=== PATIENT | male | born 1945 | race Caucasian/White ===

== ENCOUNTER → 2017-09-24 17:26 | Outpatient (CLI) | payer MEDICARE, SELFPAY ==
--- NOTE | 2017-09-24 17:30 | CT_ITS ---
STUDY: CT BRAIN WITHOUT CONTRAST REASON FOR EXAM: Male, 72 years old. Memory impairment RADIATION DOSAGE (If Supplied By Facility): CTDIvol = ( 60.81 ) mGy, DLP = ( 1089.89 ) mGycm TECHNIQUE: Transaxial CT imaging of the brain was performed without administration of intravenous contrast material. Individualized dose optimization techniques were used for this CT. COMPARISON: None. FINDINGS: Normal soft tissue structures. Normal calvarium. Mild atrophy and periventricular white matter ischemic changes.. Normal basal ganglia and thalami. Normal brainstem. Normal cerebellum. There is no intracranial hemorrhage. There are no findings of an acute ischemic infarction. Small mucous retention cyst in right maxillary sinus. CT/Brain/Head without Contrast IMPRESSION: Mild atrophy and periventricular white matter ischemic changes. No evidence for acute bleed. If concern for acute infarct MRI recommended Electronically Signed: Jermaine Yadav MD at 17:44 EDT , Service support ,
== END ==
PROVIDERS: Family Provider Internal Medicine; PCP Internal Medicine; Visit Provider Internal Medicine
DX: R41.3 Other amnesia (principal)
CPT/HCPCS: 70450

== ENCOUNTER → 2017-12-31 16:23 | Outpatient (CLI) | payer MEDICARE, SELFPAY ==
--- NOTE | 2017-12-31 16:45 | MRI_ITS ---
STUDY: MRI BRAIN WITHOUT CONTRAST REASON FOR EXAM: Male, 72 years old. Impaired gait TECHNIQUE: Standardized multiplanar fat and water weighted pulse sequences were obtained. COMPARISON: CT 09/24/2017 FINDINGS: Normal size of the ventricles and extra-axial spaces for the patient's age. Moderate microangiopathic white matter disease. Normal bilateral basal ganglia. Normal thalami. There is no extra-axial fluid accumulation. Normal flow voids within the major intracranial circulation suggesting patency by spin echo criteria. Normal sella turcica, pituitary gland, infundibular stalk, optic chiasm and hypothalamus. Normal tectal plate and pineal gland. Normal midbrain, laurent and medulla. Normal cerebellum. Normal basal cisterns. Normal bilateral temporal bones. Normal bilateral internal auditory canals. No demonstrated orbital abnormality, within the constraints of a routine brain study. Normal visualized paranasal sinuses. Normal calvarium and skull base. Normal visualized soft tissue structures. Normal visualized upper cervical spine. MRI/Brain without Contrast IMPRESSION: Moderate microangiopathic white matter disease. No evidence of infarct, hemorrhage, or mass effect. Electronically Signed: Hayder Dodd MD at 23:36 EDT Tel , Service support ,
== END ==
PROVIDERS: Family Provider Internal Medicine; PCP Internal Medicine; Visit Provider Internal Medicine
DX: R26.89 Other abnormalities of gait and mobility (principal)
CPT/HCPCS: 70551

== ENCOUNTER 2018-02-13 12:30 | Outpatient (RCR) | payer MEDICARE, SELFPAY ==
--- NOTE | 2018-01-10 08:31 | HP.PTEVAL_ITS ---
Patient's Visit Information LAUREN ESPINOZA is a 72 year old M referred to Physical Therapy by Ilda Olmos with a diagnosis of poor balance, abnormal gait.. Date of Evaluation: 01/10/18 Physical Therapist: Gonzales Yin DPT, OC - Visit Plan Frequency: 2x /Week Duration: 4-6 Weeks Plan: Neurocom balance assessment then 2x/week for vestibular balance, posture,HS and gastroc and hip stretches, coordination and progression of general strength and functional exerciese(likely to massilon Y, pt to decide.) - Subjective Subjective: Thought he had Parkinsons but MRI said otherwise adn was normal. Balance and stamina have been worseing for long time. Moving [place]e for new house and got tired quickly. Needed to hold on with one arm on steps while carrying. This has been over the last year and a half. Memory is also effected. retired 3 years ago adn sat in chair for long time 8 hours per day. No current exercises, does a little yoga a yee 1-2x/week on dvd. Sleep is OK, wakes up a lot with anxiety and to go to bathroom. No neurologist needed. Activities are a little more active now that he is moving. Pushes walking mower 30 minutes and feels exhausted. Basic ADLs are OK, hard to get socks and shoes on as legs do not do what he wants them to do.]. No pain, no numbness, no spinning. No AD needed, no falls. - Objective LE AROM WFL adn strength 4+/5. HS and gastroc show moderate tightness. Walks safe and I, transfers out of chair without UE in multiple attempts I. Steps are reciprocal with one rail to descend safely and doesn't put full foot on each step ascending. avoids forward weight shift with turns and out of chair. VOR walking is not bad. Transfer off floor needing UE on support I. sensation LE WNl to gross light. reflexes 3/3 patella and achilles. coordination to reciprocal toe tap is min dificits. Posture is hunched over btu can correct with VC quickly. - Balance Scores Functional Gait Assessment Score: 26 % Disability: 13.3400 CATSIB Score (Max score 120 seconds): 91 - Goals Goal 1:: Out of chair without UE one attempt Goal Time Frame: 4-6 Weeks Goal 2:: FGA to minimize fall risk. Goal Time Frame: 4-6 Weeks Goal 3:: I approp HEP to minimize future problems. Goal Time Frame: 4-6 Weeks Goal 4:: Pt feel 50% better mobility and stand tall without VC Goal Time Frame: 4-6 Weeks - Rehabilitation Potential Physical Therapy Diagnosis: Movement deficits causing mobility concerns. Rehabilitation Potential: Fair - Anticipated Interventions Patient/Client Instruction: Educate patient on: Condition, Plan of Care For the Purpose of:: To increase tolerance to activity/condition/position, To improve safety with gait Therapeutic Exercise to Include: Strength training, Balance training, Agility training, Flexibilty training For the Purpose of:: To increase tolerance to activity/condition/position, To improve ability of physical actions for home/community/work/leisure, To improve balance Thank you for the opportunity to evaluate your patient. For Medicare and Medicare HMO plans, please review the plan of care and approve it. It will need to be FAXED BACK to us at [phone] for Medicare purposes. Please let me know if there are questions or concerns regarding this plan of care. Physician Signatur e: Date:
--- NOTE | 2018-02-13 12:58 | HP.PTDCSUM ---
HP - PT D/C Summary It has been my pleasure to treat LAUREN ESPINOZA under orders from Ilda Olmos, for the diagnosis of poor balance, abnormal gait. for a total of 10 visit(s). Discharge Date: 02/13/18 Please see the following information for a summary of their discharge status. - Subjective Subjective: Did workout yesterday and needs update on rows and knee extension. it was OK. Getting better overall, balance is better. No falls or stumbles lately. No AD needed. Commitment to doing something everyday is there. Getting foot inside car is getting easier. - Overall Improvement % Improvement: 50 - Objective Objective/Function: FGA is +2. trasnfers are easy and no UE needed from chair. Pt is happy with workout and compliant [facility] - Goals Goal 1:: Out of chair without UE one attempt Goal 2:: FGA to minimize fall risk. Goal Progress: Goal Met Goal 3:: I approp HEP to minimize future problems. Goal Progress: Goal Met Goal 4:: Pt feel 50% better mobility and stand tall without VC Goal Progress: Goal Met - Plan Plan: D/c to gym and home ex. - D/C Information Discharge Comments: Doing well and will [facility]. If there are questions or concerns regarding this patient's physical therapy, please feel free to call me at [phone]. Thank you for the referral of this patient. Sincerely, Gonzales Yin, DPT, OC
== END 2018-02-13 19:00 | disposition home or self-care (01) ==
LOC: PT 12:30
PROVIDERS: Family Provider Internal Medicine; PCP Internal Medicine; Referring Provider Internal Medicine; Visit Provider Internal Medicine
DX: R26.89 Other abnormalities of gait and mobility (principal)
CPT/HCPCS: 97110; 97162; 97530; 97750

== ENCOUNTER → 2018-10-06 | Outpatient (CLI) | payer MEDICARE, SELFPAY ==
[2018-10-06 10:45] LABS: Erythrocyte Sedimentation Rate 8 mm/hr (0-20)
[2018-10-06 11:47] LABS: Thyroid Stim Hormone (TSH) 0.88 uIU/mL (0.358-3.74)
[2018-10-06 11:52] LABS: HIV - WCH Non-Reactive (Nonreactive); Vitamin B12 679 pg/mL (211-911)
[2018-10-13 20:06] LABS: PROEL- A/G Ratio 1.3 (0.7-1.7); PROEL- Alpha-1 Globulin 0.2 g/dL (0.0-0.4); PROEL- Alpha-2 Globulin 0.8 g/dL (0.4-1.0); PROEL- Beta Globulin 1.2 g/dL (0.7-1.3); PROEL- Gamma Globulin 0.9 g/dL (0.4-1.8); PROEL- Globulin, Total 3.1 g/dL (2.2-3.9); PROEL- TOTAL PROTEIN 7.1 g/dL (6.0-8.5)
[2018-10-14 16:24] LABS: Arsenic 7245 5 ug/L (2-23); HCV Quant. RNA PCR <15 IU/mL (.); Lead, Blood Adult 16+yrs 1 ug/dL (0-4)
== END | disposition home or self-care (01) ==
PROVIDERS: Family Provider Internal Medicine; PCP Internal Medicine; Referring Provider Psychiatry & Neurology Neurology; Visit Provider Psychiatry & Neurology Neurology
DX: G62.9 Polyneuropathy, unspecified (principal); R25.1 Tremor, unspecified; R27.0 Ataxia, unspecified; R53.1 Weakness; F03.90 Unspecified dementia, unspecified severity, without behavioral disturbance, psychotic disturbance, mood disturbance, and anxiety; R53.83 Other fatigue
CPT/HCPCS: 36415; 82607; 82746; 83018; 83655; 83825; 84165; 84443; 85652; 86703; 87522

== ENCOUNTER → 2019-03-20 15:46 | Outpatient (CLI) | payer MEDICARE, SELFPAY ==
[2019-03-20 17:34] LABS: Absolute Lymphocyte Count 1.47 X10^3/uL (0.83-4.51); Absolute Neutrophil Count 5.6 X10^3/uL (2.0-7.7); Basophil# 0.07 X10^3/uL; Basophil% 0.8 % (0-1); Eosinophils% 2.4 % (0-5); Hematocrit 43.4 % (40-54); Hemoglobin 14.4 g/dL (13.0-16.5); Lymphocyte # 1.47 X10^3/ul (4.0); Lymphocyte % 17.7 % (19-41); Mean Corp Hgb Conc 33.2 g/dL (32-36); Mean Corpuscular Hgb 31.9 pg (27.0-32.0); Mean Platelet Vol. 10.2 fl (6.2-12.0); Monocyte# 0.94 X10^3/uL; Monocyte% 11.3 % (0-10); NRBC Flagged by Analyzer 0 % (0-5); Neutrophil # 5.58 X10^3/uL (2.7-7.7); Neutrophil % 67.4 % (47-70); Platelet Count 219 K/mm3 (150-450); RBC Distribution Width CV 13.3 % (11.6-14.6); RBC Distribution Width SD 47.8 fl (35.1-43.9); Red Blood Count 4.52 M/mm3 (4.6-6.2); White Blood Count 8.3 K/mm3 (4.4-11.0)
[2019-03-20 17:42] LABS: Erythrocyte Sedimentation Rate 9 mm/hr (0-20)
[2019-03-20 17:43] LABS: Uric Acid 6.3 mg/dL (3.5-7.2)
== END ==
PROVIDERS: Family Provider Internal Medicine; PCP Internal Medicine; Referring Provider Internal Medicine; Visit Provider Internal Medicine
DX: M10.9 Gout, unspecified (principal); M79.674 Pain in right toe(s)
CPT/HCPCS: 36415; 84550; 85025; 85652

== ENCOUNTER 2019-11-19 13:06 | Emergency (ER) | payer MEDICARE, SELFPAY ==
[2019-11-19 13:08] VITALS: BP 147/92; PULSE 74; RESP 16; TEMP 36.2; O2SAT 98; BMI 24.7
--- NOTE | 2019-11-19 13:23 | CT_ITS ---
STUDY: CT ABDOMEN AND PELVIS WITHOUT CONTRAST REASON FOR EXAM: Male, 74 years old. NAUSEA X 5 DAYS RADIATION DOSAGE (If Supplied By Facility): CTDIvol = ( 14.30 ) mGy, DLP = ( 644.99 ) mGycm TECHNIQUE: Transaxial images were obtained from the dome of the diaphragm to the symphysis pubis without oral contrast, and without intravenous contrast. Sagittal and coronal images were reconstructed. Individualized dose optimization techniques were used for this CT. COMPARISON: None. FINDINGS: The visualized lung bases are unremarkable. The visualized portions of the heart are within normal limits. Normal liver. Normal gallbladder and extrahepatic biliary system. Normal spleen. Normal pancreas. Normal bilateral adrenal glands. No obstructive uropathy, there are bilateral multiple simple right renal cysts. There is a small hiatal hernia. Normal small intestine. Retained stool noted throughout the colon. There is retained oral contrast from a previous study still within the colon suggesting motility disorder There is non-visualization of the appendix. Normal abdominal aorta. Normal inferior vena cava. Normal retroperitoneum. Normal urinary bladder. Prostate is mildly enlarged, there is a right hydrocele There is a left-sided inguinal hernia containing adipose tissue. There are diffuse degenerative changes of the visualized lumbar spine. CT/Abdomen/Pelvis W IV Cont ONLY IMPRESSION: No suspicious solid organ abnormality, simple right renal cysts need no specific follow-up Retained stool throughout the colon and retained oral contrast is noted from a previous study suggesting motility disorder Mildly enlarged prostate Fat-containing left inguinal hernia Degenerative bony changes Electronically Signed: Colby Horne MD at 14:45 EDT , Service support ,
--- NOTE | 2019-11-19 13:47 | ED.VIS.GEN ---
History of Present Illness Chief Complaint: Abd Pain Informant: Patient, Family Onset: Days Timing: Continuous Current Severity: Moderate Maximum Severity: Moderate Narrative: The patient is a 74-year-old male with history of Parkinson's that presents to the emergency department with midepigastric pain, nausea, and vomiting. The patient states his symptoms began on Saturday. He states that he began to have a sharp, stabbing pain in his central abdomen. He has had multiple episodes of dry heaving. He states he has not moved his bowels, which is not atypical for him. He denies any fevers or chills. He states he just feels generally weak. The patient has no history of prior abdominal surgery. He denies any sick contacts. Prior similar symptoms: No Recent Illness/Hospitalization: No Past Medical History - Allergies and Home Meds Allergies/Adverse Reactions: Allergies No Known Allergies Allergy (Verified 11/19/19 13:11) Primary Care Physician: Ilda Olmos DO [Primary Care Provider] - Prior records reviewed: Yes Past Medical History: - - Parkinson's with minimal dementia Surgical History: noncontributory Review of Systems General: Denies: Chills, Fever, Sweats Eyes: Denies: Visual changes - bilaterally, Diplopia ENT: Denies: Rhinorrhea, Sore throat Cardiovascular: Denies: Chest pain, Palpitations Respiratory: Denies: Dyspnea, Cough, Dyspnea on exertion, Paroxysmal nocturnal dyspnea Gastrointestinal: Reports: Abdominal pain, Nausea, Vomiting. Denies: Diarrhea, Melena, Hematochezia Genitourinary: Denies: Dysuria, Hematuria, Frequency Musculoskeletal: Denies: Back pain, Extremity Pain Skin: Denies: Rash, Wounds Neurological: Denies: Headache, Weakness, Numbness Physical Exam Vital Signs/Narrative: Vital Signs Temp Pulse Resp BP Pulse Ox 11/19/19 13:08 97.2 F L 74 16 147/92 H 98 Inital Vital Signs reviewed: Yes General: Well nourished, Well developed, No Acute Distress Head: Normocephalic, Atraumatic Eyes: Perrl, EOMI ENT: Moist mucous membranes, No rhinorrhea Neck: Supple, Nontender Cardiovascular: Regular rate, Regular rhythm, No murmurs Respiratory: No distress, CTA bilaterally, Chest nontender Abdomen: Soft, Nondistended, Normal bowel sounds, Tender. Negative for: Nontender, Guarding, Rebound tenderness Back: Nontender, Normal Inspection Extremities: Nontender, No edema Skin: Normal color, No rash Neurological: Alert, Oriented x3, Cranial nerves II-XII grossly intact, Normal Strength, Normal Sensation Psychological: Normal affect, Normal Mood Diagnostic/Tx/Re-eval Clinical Impression(s) from Imaging Studies Abdomen/Pelvis CT 11/19/19 13:23 IMPRESSION: No suspicious solid organ abnormality, simple right renal cysts need no specific follow-up Retained stool throughout the colon and retained oral contrast is noted from a previous study suggesting motility disorder Mildly enlarged prostate Fat-containing left inguinal hernia Degenerative bony changes Electronically Signed: Colby Horne MD at 14:45 EDT , Service support , Abnormal Lab Results 11/19/19 11/19/19 13:40 13:40 WBC 9.7 RBC 4.67 Hgb 15.1 Hct 41.2 MCV 88.2 MCH 32.3 H MCHC 36.7 H RDW Std Deviation 37.9 RDW Coeff of Fiorella 11.9 Plt Count 247 MPV 9.8 Immature Gran % (Auto) 0.400 Neut % (Auto) 84.4 H Lymph % (Auto) 6.4 L [place] % (Auto) 8.6 Eos % (Auto) 0.1 Baso % (Auto) 0.1 Absolute Neuts (auto) 8.2 H Absolute Lymphs (auto) 0.62 L Nucleated RBC % 0 Sodium 123 L Potassium 3.7 Chloride 83 L Carbon Dioxide 30.0 Anion Gap 10 BUN 15 Creatinine 1.12 Estim Creat Clear Calc 57.86 Est GFR (MDRD) Af Amer 82 Est GFR (MDRD) Non-Af 68 BUN/Creatinine Ratio 13.4 Glucose 129 H Calcium 10.0 Total Bilirubin 0.90 AST 16 ALT 38 Alkaline Phosphatase 55 Total Protein 8.4 H Albumin 4.6 Globulin 3.8 Albumin/Globulin Ratio 1.2 Lipase 56 L - Medical Decision Making Patient presents with nausea, vomiting, and midepigastric pain. His abdomen is soft and nontender. He is not had fever. I really cannot re-create any tenderness on exam. Metabolic work-up was pursued. The patient is mildly hyponatremic, but I do not feel this is contributing to his symptoms. He was given IV fluids. Patient underwent CT of the abdomen pelvis. There is no evidence of acute intra-abdominal process. After Zofran, he was reevaluated. The patient is resting comfortably with no complaints. He was able to tolerate an oral challenge. At this point, I do feel that he is safe for outpatient follow-up. I am going to prescribe him antiemetics and have him follow-up for repeat BMP in a week. He and are comfortable with this plan of care. Impression 1. Nausea vomiting 2. Hyponatremia ED Disposition - Plan for ED Patient: Instructions: ED Nausea Vomiting Adult Prescriptions: Ondansetron [Zofran Odt] 4 mg PO Q8H PRN PRN #10 tab PRN Reason: Nausea Prescription Printed Referrals: Ilda Olmos DO [Primary Care Provider] -
[2019-11-19 13:52] LABS: Absolute Lymphocyte Count 0.62 X10^3/uL (0.83-4.51); Absolute Neutrophil Count 8.2 X10^3/uL (2.0-7.7); Basophil# 0.01 X10^3/uL; Basophil% 0.1 % (0-1); Eosinophil# 0.01 X10^3/uL; Eosinophils% 0.1 % (0-5); Hematocrit 41.2 % (40-54); Hemoglobin 15.1 g/dL (13.0-16.5); Lymphocyte # 0.62 X10^3/ul (4.0); Lymphocyte % 6.4 % (19-41); Mean Corp Hgb Conc 36.7 g/dL (32-36); Mean Corpuscular Hgb 32.3 pg (27.0-32.0); Mean Corpuscular Volume 88.2 fL (80-94); Mean Platelet Vol. 9.8 fl (6.2-12.0); Monocyte# 0.84 X10^3/uL; Monocyte% 8.6 % (0-10); NRBC Flagged by Analyzer 0 % (0-5); Neutrophil % 84.4 % (47-70); Platelet Count 247 K/mm3 (150-450); RBC Distribution Width CV 11.9 % (11.6-14.6); RBC Distribution Width SD 37.9 fl (35.1-43.9); Red Blood Count 4.67 M/mm3 (4.6-6.2); White Blood Count 9.7 K/mm3 (4.4-11.0)
[2019-11-19] MEDS: 0.9% Normal Saline 1,000 ML 1000 ML IV (13:53)
[2019-11-19] MEDS: Ondansetron 4 MG/2 ML Vial IV (13:53)
[2019-11-19 14:09] LABS: ALB/GLOB Ratio 1.2 RATIO (0.9-2.4); AST(SGOT) 16 U/L (15-37); Alanine Aminotransfer ALT/SGPT 38 U/L (16-61); Albumin, Serum 4.6 g/dL (3.2-5.0); Alkaline Phosphatase 55 U/L (45-117); Anion Gap 10 (5-15); BUN 15 mg/dL (7-18); BUN/Creat Ratio 13.4 RATIO (10-20); Chloride 83 mmol/L (98-107); Creatinine, Serum 1.12 mg/dL (0.70-1.30); EST Glomerular Filtration Rate 68 mL/min (>60); Est Glom Filt Rate - Afr Amer 82 mL/min (>60); Estimated Creatinine Clearance 57.86 ml/min; Globulin 3.8 g/dL (2.2-4.2); Glucose 129 mg/dL (74-106); Lipase 56 U/L (73-393); Potassium 3.7 mmol/L (3.5-5.1); Protein, Total 8.4 g/dL (6.4-8.2); Sodium Level 123 mmol/L (136-145)
[2019-11-19 15:40] LABS: Bacteria 0 SEEN /hpf (None Seen); Mucous, Urine 0 SEEN /hpf (<or=2+); Squamous Epithelial Cells - UA 0 SEEN /hpf (0-5); White Blood Cells 0 SEEN /hpf (0-5)
[2019-11-19 15:56] LABS: Color, Urine Yellow (Yellow); Glucose, Dipstick Normal (Normal); Ketone-Dipstick 15 mg/dl (Negative); Leukocyte Esterase-Dipstick Negative /ul (Negative); Nitrite-Dipstick Negative (Negative); Occult Blood-Urine 10 /ul (Negative); Protein-Dipstick Negative (Negative); Specific Gravity, Urine 1.015 (1.002-1.030); Urine Bilirubin Dipstick Negative (Negative); Urine Clarity Clear (Clear); Urine Urobilinogen Normal (Normal); Urine pH 6.5 (5.0 - 8.0)
[2019-11-19 16:14] LABS: Red Blood Cells-Urine 0-5 SEEN /hpf (0-5)
[2019-11-19 16:45] VITALS: BP 136/78; PULSE 69; RESP 16; O2SAT 98
== END 2019-11-19 16:46 | disposition home or self-care (01) ==
LOC: ED 14:21
PROVIDERS: Emergency Provider Emergency Medicine; PCP Internal Medicine
DX: R11.2 Nausea with vomiting, unspecified (principal); E87.1 Hypo-osmolality and hyponatremia
CPT/HCPCS: 74177; 80053; 81001; 83690; 85025; 96361; 96374; 99284; J7030; Q9967; A4216; J2405

== ENCOUNTER → 2019-12-17 12:54 | Outpatient (CLI) | payer MEDICARE, SELFPAY ==
[2019-11-19 13:08] VITALS: BMI 24.7
--- NOTE | 2019-12-17 12:58 | CT_ITS ---
STUDY: CT BRAIN WITHOUT CONTRAST REASON FOR EXAM: Male, 74 years old. UNSTEADY GAIT RADIATION DOSAGE (If Supplied By Facility): CTDIvol = ( 44.99 ) mGy, DLP = ( 846.73 ) mGycm TECHNIQUE: Transaxial CT imaging of the brain was performed without administration of intravenous contrast material. Individualized dose optimization techniques were used for this CT. COMPARISON: Comparison is made with prior study dated 09/24/2017. FINDINGS: Normal soft tissue structures. Normal calvarium. There is mild cerebral atrophy with widening of the extra-axial spaces and ventricular dilatation. There are areas of decreased attenuation within the white matter tracts of the supratentorial brain, consistent with microvascular disease changes. Normal basal ganglia and thalami. Normal brainstem. Normal cerebellum. There is no intracranial hemorrhage. There are no findings of an acute ischemic infarction. Atherosclerotic calcification of the cavernous portions of the internal carotid arteries bilaterally. There is a 1.1 cm polyp or mucosal retention cyst along the posterior medial inferior aspect of the right maxillary sinus. CT/Brain/Head without Contrast IMPRESSION: Chronic involutional changes of the brain. Electronically Signed: [place] Jean Baptiste, at 13:17 EDT , Service support ,
== END ==
PROVIDERS: PCP Internal Medicine; Referring Provider Psychiatry & Neurology Neurology; Visit Provider Psychiatry & Neurology Neurology
DX: R26.9 Unspecified abnormalities of gait and mobility (principal)
CPT/HCPCS: 70450